=== PATIENT | male | born 1980 | race African-American/Black ===

== ENCOUNTER 2016-11-07 17:21 | Emergency (ER) | payer OTHER ==
[~2016-11-07] VITALS: Ht 182.9 cm; Wt 90.7 kg
[~2016-11-07 17:21] MED LIST: NAPROSYN500 MG PO; NOHOMEMEDICATIONS; NORCO 5-325 TA1 EACH PO
[2016-11-07 17:27] VITALS: BP 126/85
[2016-11-07] MEDS ORDERED: BACTRIM DS TAB1 EACH PO (17:41)
[2016-11-07] MEDS ORDERED: BACTROBAN NASAL1 GM NASAL (17:44)
== END 2016-11-07 18:15 | disposition home or self-care (01) ==
LOC: ER 17:21
DX: L73.9 Follicular disorder, unspecified (principal); M27.2 Inflammatory conditions of jaws; I10 Essential (primary) hypertension; F17.210 Nicotine dependence, cigarettes, uncomplicated

== ENCOUNTER 2020-09-22 15:56 | Emergency (ER) | payer OTHER ==
[~2020-09-22] VITALS: Ht 182.9 cm; Wt 81.7 kg
[~2020-09-22 15:56] MED LIST changes: +BACTRIM DS TAB1 EACH PO; +BACTROBAN NASAL1 GM NASAL
[2020-09-22 15:57] VITALS: BP 133/86
[2020-09-22] MEDS ORDERED: AMOXICILLIN500 M1 PO (16:08)
== END 2020-09-22 16:30 | disposition home or self-care (01) ==
LOC: ER 15:56
DX: K04.7 Periapical abscess without sinus (principal); F17.210 Nicotine dependence, cigarettes, uncomplicated; Z79.899 Other long term (current) drug therapy

== ENCOUNTER 2021-02-04 00:07 | Emergency (ER) | payer OTHER ==
[~2021-02-04] VITALS: Ht 182.9 cm; Wt 72.6 kg
[~2021-02-04 00:07] MED LIST changes: +AMOXICILLIN500 M1 PO
[2021-02-04] MEDS ORDERED: PERCOCET 5-3251 EACH PO ×2 (01:39→01:55)
[2021-02-04] MEDS ORDERED: AUGMENTIN 875-1 EACH PO ×2 (01:39→01:55)
[2021-02-04 02:07] VITALS: BP 132/92
== END 2021-02-04 02:07 | disposition home or self-care (01) ==
LOC: ER 00:07
DX: K08.89 Other specified disorders of teeth and supporting structures (principal); F17.210 Nicotine dependence, cigarettes, uncomplicated